=== PATIENT | male | born 1995 | race American Indian/Alaskan Native ===

== ENCOUNTER 2017-10-18 18:57 | Emergency (ER) | payer BC ==
[2017-10-18 18:57] VITALS: BMI 20.2
[2017-10-18 19:29] VITALS: BP 124/62; PULSE 78; TEMP 98.8
[2017-10-18] MEDS ORDERED: Albuterol-Ipratrop 3 mg / 0.5 (3 ml) UD IH STA (19:54)
--- NOTE | 2017-10-18 19:59 | ED PDOC ---
Arrival/HPI - General Chief Complaint: Shortness Of Breath Time Seen by Provider: 10/18/17 19:38 Historian: Patient - History of Present Illness Narrative History of Present Illness (Text): 10/18/17 19:52 A 22 year old male, whose past medical history includes asthma, presents to the emergency department complaining of wheezing for 2-3 days. Patient reports also experiencing minimal chest pain with cough. Patient denies any fever, or any other complaints at this time. Also, patient is refusing lab workup. No PMD Past Medical History - Provider Review Nursing Documentation Reviewed: Yes - Past History Past History: No Previous - Infectious Disease Hx of Infectious Diseases: None - Tetanus Immunization Tetanus Immunization: Unknown - Past Medical History Past Medical History: No Previous - Cardiac Hx Cardiac Disorders: No - Pulmonary Hx Asthma: Yes - Neurological Hx Neurological Disorder: No - HEENT Hx HEENT Disorder: No - Renal Hx Renal Disorder: No - Endocrine/Metabolic Hx Endocrine Disorders: No - Hematological/Oncological Hx Blood Disorders: No - Integumentary Hx Dermatological Disorder: No - Musculoskeletal/Rheumatological Hx Musculoskeletal Disorders: No - Gastrointestinal Hx Gastrointestinal Disorders: No - Genitourinary/Gynecological Hx Genitourinary Disorders: No - Psychiatric Hx Depression: No Hx Substance Use: Yes (marijuana) - Past Surgical History Past Surgical History: No Previous - Anesthesia Hx Anesthesia: No Hx Anesthesia Reactions: No Hx Malignant Hyperthermia: No - Suicidal Assessment Feels Threatened In Home Enviroment: No Family/Social History - Physician Review Nursing Documentation Reviewed: Yes Family/Social History: No Known Family HX Smoking Status: Never Smoked Hx Alcohol Use: Yes Hx Substance Use: Yes (marijuana) Hx Substance Use Treatment: No Allergies/Home Meds Allergies/Adverse Reactions: Allergies MUSHROOM Allergy (Intermediate, Uncoded 11/04/16 23:30) SWELLING peanuts Allergy (Uncoded 11/04/16 23:30) SWELLING Home Medications: Home Meds Medication Instructions Recorded Confirmed Montelukast [Singulair] 10 mg PO HS 10/18/17 10/18/17 Review of Systems - Physician Review All systems were reviewed & negative as marked: Yes - Review of Systems Constitutional: absent: Fevers Respiratory: SOB, Cough, Wheezing Cardiovascular: Chest Pain (minimal) Physical Exam Vital Signs Reviewed: Yes Vital Signs Temp Pulse Resp BP Pulse Ox 10/18/17 21:42 98 10/18/17 21:40 20 99 10/18/17 19:34 18 10/18/17 19:24 98.8 F 78 18 124/62 100 Temperature: Afebrile Blood Pressure: Normal Pulse: Regular Respiratory Rate: Normal Appearance: Positive for: Well-Appearing Pain Distress: None Mental Status: Positive for: Alert and Oriented X 3, other (patient is speaking in full sentences; perc negative) - Systems Exam Head: Present: Atraumatic, Normocephalic Mouth: Present: Moist Mucous Membranes Neck: Present: Normal Range of Motion Respiratory/Chest: Present: Wheezes (scattered wheezing) Cardiovascular: Present: Regular Rate and Rhythm, Normal S1, S2. No: Murmurs Abdomen: No: Tenderness, Distention, Peritoneal Signs Back: Present: Normal Inspection Upper Extremity: Present: Normal Inspection. No: Cyanosis, Edema Lower Extremity: Present: Normal Inspection. No: Edema Neurological: Present: GCS=15, CN II-XII Intact, Speech Normal Skin: Present: Warm, Dry, Normal Color. No: Rashes Psychiatric: Present: Alert, Oriented x 3, Normal Insight, Normal Concentration Medical Decision Making ED Course and Treatment: 10/18/17 19:54 Impression: 22 year old male with wheezing, minimal chest pain, and cough. Physical exam shows scattered wheezing. Plan: -- Chest X-ray -- Duoneb -- Prednisone -- Reassess and disposition Progress Notes: 10/21/17 23:32 minial wheezing perc neg. refuses cxr labs. asking for dc - Medication Orders Current Medication Orders: Discontinued Medications Albuterol/Ipratropium (Duoneb 3 Mg/0.5 Mg (3 Ml) Ud) 3 ml IH STAT STA Stop: 10/18/17 19:55 Last Admin: 10/18/17 20:23 Dose: 3 ml Prednisone (Prednisone Tab) 50 mg PO STAT STA Stop: 10/18/17 19:55 Last Admin: 10/18/17 20:25 Dose: 50 mg - Scribe Statement The provider has reviewed the documentation as recorded by the Cinthya Hooks Provider Scribe Attestation: All medical record entries made by the Scribgonzalez were at my direction and personally dictated by me. I have reviewed the chart and agree that the record accurately reflects my personal performance of the history, physical exam, medical decision making, and the department course for this patient. I have also personally directed, reviewed, and agree with the discharge instructions and disposition. Disposition/Present on Arrival - Present on Arrival Any Indicators Present on Arrival: No History of DVT/PE: No History of Uncontrolled Diabetes: No Urinary Catheter: No History of Decub. Ulcer: No History Surgical Site Infection Following: None - Disposition Have Diagnosis and Disposition been Completed?: Yes Diagnosis: Asthma Disposition: HOME/ ROUTINE Disposition Time: 21:00 Condition: STABLE Discharge Instructions (ExitCare): Asthma in Adults Additional Instructions: return to er with worsening symptoms or concerns. you are declining lab work and xray. you are able to return to er with any worsening symptoms at any time. Prescriptions: Albuterol 0.083% [Albuterol 0.083% Inhal Megan (2.5 mg/3 ml) UD] 2.5 mg IH Q6 PRN #20 neb PRN Reason: Wheezing Prednisone 50 mg PO DAILY #4 Referrals: [facility] Amy Romero, [Non-Staff] - Follow up with primary Forms: [employer] ([place]), WORK NOTE
[2017-10-18 21:40] VITALS: RESP 20
[2017-10-18 21:42] VITALS: O2SAT 98
== END 2017-10-18 21:41 | disposition home or self-care (01) ==
LOC: ED 18:57
DX: J45.909 Unspecified asthma, uncomplicated (principal)